=== PATIENT | female | born 2005 | race Caucasian/White ===

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

== ENCOUNTER 2024-02-24 13:24 | Emergency (ER) | payer OTHER, SELFPAY ==
[2024-02-24 13:31] VITALS: BP 112/71; PULSE 99; TEMP 36.7; O2SAT 99; BMI 26.6
--- NOTE | 2024-02-24 13:49 | W.ED.URI ---
HPI - URI/Sore Throat General: Chief Complaint: Upper Respiratory Infection Stated Complaint: throat pain, sore throat, Nausea, light sensitivit Time Seen by Provider: 02/24/24 13:37 History of Present Illness: 18-year-old female presents to the emergency room complaining of severe sore throat and nausea some headache as well. Subjective fever. No vomiting or diarrhea but has been quite nauseous. No diarrhea. Associated symptoms: Deny abdominal pain, chills, chest pain or fever(s) Related Data Previous Rx's Medication Instructions Recorded drospirenone 3 mg-ethinyl 1 tab PO DAILY #84 tabs 11/17/23 estradiol 0.03 mg tablet (Alize (28)) amoxicillin 875 mg-potassium 1 tab PO BID #20 tabs 02/24/24 clavulanate 125 mg tablet prednisone 20 mg tablet 20 mg PO TID #15 tabs 02/24/24 Allergies Allergy/AdvReac Type Severity Reaction Status Date / Time No Known Allergies Allergy Verified 02/24/24 13:35 Review of Systems Const: Denies: fever(s) or chills ENMT: Reports: throat pain, odynophagia and hoarseness Card: Denies: chest pain Resp: Denies: dyspnea GI: Denies: abdominal pain : Denies: dysuria, urinary frequency or urinary urgency Musc: Denies: neck pain or back pain Skin/Breast: Denies: rash PFSH ED PFSH: Medical History 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 Grandfather Diabetes maternal Heart disease maternal Denies family history of Colon cancer Ovarian cancer Hyperlipidemia Breast cancer Hypertension Uterine cancer Thyroid disease Stroke Social History Smoking and tobacco/nicotine status: unknown if used tobacco/nicotine Physical Exam Const: COMMON NORMALS: no acute distress GENERAL APPEARANCE: cooperative and comfortable ORIENTATION/CONSCIOUSNESS: Yes awake, Yes oriented to person, Yes oriented to place and Yes oriented to time HENMT: COMMON NORMALS: normocephalic, atraumatic and hearing grossly normal bilaterally HEAD & SCALP: normocephalic and atraumatic THROAT: posterior oropharynx abnormal edema and erythema Lymph: OTHER: Tender submandibular lymphadenopathy and cervical lymph nodes no abscess. Resp: COMMON NORMALS: normal respiratory effort, No retractions, No use of accessory muscles and clear to auscultation bilaterally AUSCULTATION: clear to auscultation bilaterally Cardio: COMMON NORMALS: regular rate, regular rhythm and No murmurs present (Cardio) RATE: regular rate RHYTHM: regular rhythm GI: COMMON NORMALS: Soft to palpation and No hepatosplenomegaly present AUSCULTATION: Yes normoactive bowel sounds PALPATION: Yes Soft to palpation, No Tenderness to palpation present (GI), No Guarding due to palpation present (GI) and Yes No hepatosplenomegaly present Extremity: COMMON NORMALS: normal to inspection, capillary refill normal, no clubbing, cyanosis or edema, no calf tenderness and no pedal edema Neuro: SENSORIUM/ORIENTATION: Yes oriented to person, Yes oriented to place and Yes oriented to time Skin: COMMON NORMALS: no rashes or lesions noted GENERAL SKIN EXAM: no rashes or lesions noted Course Vital Signs: Vital signs: Vital Signs Temperature 98.1 F 02/24/24 13:31 Pulse Rate 90 02/24/24 18:20 Respiratory Rate 18 02/24/24 18:20 Blood Pressure 100/70 02/24/24 18:20 Pulse Oximetry 97 02/24/24 18:20 Oxygen Delivery Me thod Room Air 02/24/24 16:23 MDM - URI/Sore Throat Medical Decision Making Rapid strep negative CT shows lingular tonsillitis. She does have some submandibular glands as well will treat with Augmentin 875 twice daily for 10 days. Prednisone taper have her follow-up with primary care if not improving Medical Records I reviewed the patient's medical records. Lab Data I reviewed the patient's lab results. 02/24/24 14:22 02/24/24 14:[address] 02/24/24 15:28 IMPRESSION: 1. Lingual tonsillitis. 2. Bilateral submandibular lymphadenopathy. Laboratory Results WBC 15.19 10^3/uL (4.5-13.0) H 02/24/24 14:22 RBC 4.11 10^6/uL (3.85-5.65) 02/24/24 14:22 Hgb 12.70 g/dL (12.4-14.8) 02/24/24 14:22 Hct 38.5 % (36-47) 02/24/24 14:22 MCV 93.7 fl (85-98) 02/24/24 14:22 MCH 30.9 pg (27-33) 02/24/24 14:22 MCHC 33.0 g/dL (30-55) 02/24/24 14:22 RDW 12.7 % (12.1-15.1) 02/24/24 14:22 Plt Count 283 10^3/cmm (157-399) 02/24/24 14:22 MPV 10.0 fL (7.4-10.4) 02/24/24 14:22 Neut % (Auto) 74.1 % 02/24/24 14:22 Lymph % (Auto) 15.8 % 02/24/24 14:22 [place] % (Auto) 8.4 % 02/24/24 14:22 Eos % (Auto) 0.9 % 02/24/24 14:22 Baso % (Auto) 0.3 % 02/24/24 14:22 Neut # (Auto) 11.26 10^3/uL (1.8-8.0) H 02/24/24 14:22 Lymph # (Auto) 2.4 10^3/uL (1.5-6.5) 02/24/24 14:22 [place] # (Auto) 1.3 10^3/uL (0.2-0.9) H 02/24/24 14:22 Eos # (Auto) 0.1 10^3/uL (0.0-0.8) 02/24/24 14:22 Baso # (Auto) 0.0 10^3/uL (0.0-0.1) 02/24/24 14:22 Nucleated RBC % (auto) 0 % 02/24/24 14:22 Nucleated RBCs # 0.0 /100WBC 02/24/24 14:22 Sodium 138 mmol/L (136-145) 02/24/24 14:22 Potassium 3.6 mmol/L (3.5-5.1) 02/24/24 14:22 Chloride 103 mmol/L (98-107) 02/24/24 14:22 Carbon Dioxide 23 mmol/L (22-29) 02/24/24 14:22 Anion Gap 15.6 (5-19) 02/24/24 14:22 BUN 7 mg/dL (6-20) 02/24/24 14:22 Creatinine 0.6 mg/dL (0.5-0.9) 02/24/24 14:22 GFR Calculation 128.8 mL/min (90-130) 02/24/24 14:22 Glucose 95 mg/dL (65-115) 02/24/24 14:22 Calculated Osmolality 284 mOsm/kg (285-295) L 02/24/24 14:22 Calcium 9.4 mg/dL (8.5-10.5) 02/24/24 14:22 Total Bilirubin 0.2 mg/dL (0.15-1.2) 02/24/24 14:22 AST 14 U/L (0-32) 02/24/24 14:22 ALT 16 U/L (0-33) 02/24/24 14:22 Alkaline Phosphatase 109 U/L (35-105) H 02/24/24 14:22 Total Protein 7.1 g/dL (6.6-8.7) 02/24/24 14:22 Albumin 4.3 g/dL (3.5-5.2) 02/24/24 14:22 Globulin 2.8 g/dL (1.3-4.6) 02/24/24 14:22 Monoscreen Negative (Negative) 02/24/24 14:22 Group A Strep Rapid Negative (Negative) 02/24/24 14:37 All radiology interpretation(s) finalized by discharge Discharge Plan Discharge Patient Disposition: Home Clinical Impression: Lingual tonsillitis Condition: Stable Prescriptions: New prednisone 20 mg tablet 20 mg PO TID Qty: 15 0RF Rx Instructions: 1 p.o. 3 times daily x3 days, 1 p.o. twice daily x2 days, 1 p.o. daily x2 days amoxicillin-pot clavulanate 875-125 mg tablet 1 tab PO BID Qty: 20 0RF No Action drospirenone-ethinyl estradiol [Alize (28)] 3-0.03 mg tablet 1 tab PO DAILY Qty: 84 1RF Discharge Orders: Discharge ED (Routine); Ordered 02/24/24 Ordered By: Linwood Quintanilla Referrals: Berenice Hernandez DO [Primary Care Provider] - Discharge Diet: Soft Mechanical Discharge Activity: Increase activity as tolerated Patient Instructions: Opioid Safety, Pain Management Activity Restrictions/Additional Instructions: Thank you for choosing [facility] for your healthcare needs today. It is very important that you follow up as instructed or that you return to the Emergency Department should you have concerns or if your condition changes or worsens in any way. You were seen in the emergency room with complaints of a sore throat. Rapid strep and mono were negative CT showed a lingular tonsillitis on exam he did have significant submandibular lymph nodes that were swollen as well. Recommend started on antibiotic 1 twice a day for 10 days also steroids which will help with the pain follow-up with your primary care doctor if not improving Coding Level of Care Code ED Data Support Analyst for Wes Malik
[2024-02-24 14:29] LABS: Basophils % 0.3 %; Eosinophils # 0.1 10^3/uL (0.0-0.8); Eosinophils % 0.9 %; Hematocrit 38.5 % (36-47); Lymphocytes # 2.4 10^3/uL (1.5-6.5); Lymphocytes % 15.8 %; Mean Corpuscular Hemoglobin 30.9 pg (27-33); Mean Corpuscular Volume 93.7 fl (85-98); Monocytes # 1.3 10^3/uL (0.2-0.9); Monocytes % 8.4 %; Neutrophils # 11.26 10^3/uL (1.8-8.0); Neutrophils % 74.1 %; Nucleated Red Blood Cells % 0 %; Platelet Count 283 10^3/cmm (157-399); Red Blood Count 4.11 10^6/uL (3.85-5.65); Red Cell Distribution Width 12.7 % (12.1-15.1); White Blood Count 15.19 10^3/uL (4.5-13.0)
--- NOTE | 2024-02-24 14:38 | PC.PHAR ---
Pt states takes only Control currently, She did not diamond picker the Mupirocin oint from 12/02/23. Pt states is taking tylenol or ibuprofen along with mucinex cough drops.
[2024-02-24 14:47] LABS: Monoscreen Negative (Negative)
[2024-02-24 14:55] LABS: Rapid Strep A Test Negative (Negative)
[2024-02-24 14:56] LABS: Alanine Aminotransferase 16 U/L (0-33); Albumin Level 4.3 g/dL (3.5-5.2); Alkaline Phosphatase 109 U/L (35-105); Anion Gap 15.6 (5-19); Aspartate Amino Transferase 14 U/L (0-32); Blood Urea Nitrogen 7 mg/dL (6-20); Calcium 9.4 mg/dL (8.5-10.5); Carbon Dioxide 23 mmol/L (22-29); Chloride 103 mmol/L (98-107); Creatinine Clr Calc Pharmacy 150.5372; Globulin 2.8 g/dL (1.3-4.6); Glomerular Filtration Rate 128.8 mL/min (90-130); Glucose 95 mg/dL (65-115); Osmolality Calculated 284 mOsm/kg (285-295); Potassium 3.6 mmol/L (3.5-5.1); Sodium 138 mmol/L (136-145); Total Bilirubin 0.2 mg/dL (0.15-1.2); Total Protein 7.1 g/dL (6.6-8.7)
--- NOTE | 2024-02-24 15:28 | CTR_ITS ---
PROCEDURE INFORMATION: Exam: CT Neck With Contrast Exam date and time: 02/24/2024 4:17 PM Age: 18 years old Clinical indication: Throat pain; Prior surgery; Surgery date: 6+ months; Surgery type: Tonsils; Additional info: Pain trismus TECHNIQUE: Imaging protocol: Computed tomography of the neck with contrast. Radiation optimization: All CT scans at this facility use at least one of these dose optimization techniques: automated exposure control; mA and/or kV adjustment per patient size (includes targeted exams where dose is matched to clinical indication); or iterative reconstruction. Contrast material: OMNI 350; Contrast volume: 80 ml; Contrast route: INTRAVENOUS (IV); COMPARISON: No relevant prior studies available. RADIATION DOSE METRICS: Total DLP (mGy-cm): 248.88 FINDINGS: Salivary glands: Normal. Glands are normal in size. Pharynx: Lingual tonsils are enlarged and heterogeneously enhancing consistent with tonsillitis. Adenoid tonsils and palatine tonsils not visualized. Prevertebral and retropharyngeal spaces: Unremarkable. Larynx: Unremarkable. Epiglottis is normal. Thyroid: Normal. No enlarged or calcified nodules. Trachea: Visualized trachea is unremarkable. Lungs: Unremarkable as visualized. Lymph nodes: Bilateral submandibular lymphadenopathy. Bones/joints: Unremarkable. No acute fracture. Soft tissues: Unremarkable. No significant soft tissue swelling. CT/CT neck w con* [id number] IMPRESSION: 1. Lingual tonsillitis. 2. Bilateral submandibular lymphadenopathy.
[2024-02-24] MEDS: iohexol 350 mg/mL 500 mL Btl (per mL) IV (16:20)
[2024-02-24 16:23] VITALS: BP 98/77; PULSE 99; RESP 17; O2SAT 95
[2024-02-24] MEDS: ketorolac 30 mg/mL INJ IVP (18:07)
[2024-02-24] MEDS: dexamethasone 10 mg/mL INJ IM (18:07)
[2024-02-24 18:20] VITALS: BP 100/70; PULSE 90; RESP 18; O2SAT 97
== END 2024-02-24 18:21 | disposition home or self-care (01) ==
PROVIDERS: Emergency Provider Family Medicine; PCP Pediatrics
DX: J03.90 Acute tonsillitis, unspecified (principal)
CPT/HCPCS: 36415; 70491; 80053; 85025; 86308; 87081; 87880; 96374; 99285; J1100; J1885

== ENCOUNTER 2024-05-23 18:13 | Emergency (ER) | payer OTHER, SELFPAY ==
[2024-05-23 18:17] VITALS: BP 106/60; PULSE 90; RESP 14; TEMP 36.7; O2SAT 97; BMI 26.6
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
[2024-05-23 18:31] VITALS: BP 116/76; PULSE 76; O2SAT 96
[2024-05-23 19:15] VITALS: BP 115/84; PULSE 74; O2SAT 96
== END 2024-05-23 19:16 | disposition home or self-care (01) ==
PROVIDERS: Emergency Provider Emergency Medicine; PCP Pediatrics
DX: S13.4XXA Sprain of ligaments of cervical spine, initial encounter (principal); S09.8XXA Other specified injuries of head, initial encounter; V89.2XXA Person injured in unspecified motor-vehicle accident, traffic, initial encounter
CPT/HCPCS: 70450; 72125; 99284

== ENCOUNTER 2024-12-17 21:34 | Emergency (ER) | payer OTHER, SELFPAY ==
[2024-12-17 21:37] VITALS: BP 119/70; PULSE 90; RESP 16; TEMP 36.8; O2SAT 98; BMI 20.9
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
[2024-12-17 21:56] LABS: Hematocrit 39.5 % (36-47); Hemoglobin 13.70 g/dL (12.4-14.8); Mean Corpuscular HGB Conc 34.7 g/dL (30-55); Mean Corpuscular Hemoglobin 31.3 pg (27-33); Mean Corpuscular Volume 90.2 fl (85-98); Nucleated Red Blood Cells % 0 %; Platelet Count 304 10^3/cmm (157-399); Red Blood Count 4.38 10^6/uL (3.85-5.65); White Blood Count 10.97 10^3/uL (4.5-13.0)
[2024-12-17 22:27] LABS: Alanine Aminotransferase 17 U/L (0-33); Albumin Level 4.8 g/dL (3.5-5.2); Alkaline Phosphatase 112 U/L (35-105); Anion Gap 17.7 (5-19); Aspartate Amino Transferase 19 U/L (0-32); Blood Urea Nitrogen 7 mg/dL (6-20); Calcium 9.8 mg/dL (8.5-10.5); Carbon Dioxide 22 mmol/L (22-29); Chloride 103 mmol/L (98-107); Creatinine Clr Calc Pharmacy 134.7278; Globulin 3.0 g/dL (1.3-4.6); Glucose 97 mg/dL (65-115); Osmolality Calculated 286 mOsm/kg (285-295); Potassium 3.7 mmol/L (3.5-5.1); Sodium 139 mmol/L (136-145); Thyroid Stimulating Hormone 1.19 uIU/mL (0.27-4.20); Total Protein 7.8 g/dL (6.6-8.7)
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
[2024-12-17 22:30] LABS: Salicylate < 0.3 mg/dL (3-10)
[2024-12-17 22:31] LABS: Acetaminophen < 5.0 ug/mL (10-30); Alcohol Level < 10 mg/dL (0-10)
== END 2024-12-17 23:40 | disposition home or self-care (01) ==
PROVIDERS: Emergency Provider Physician Assistant; PCP Pediatrics
DX: F41.9 Anxiety disorder, unspecified (principal)
CPT/HCPCS: 36415; 80053; 80307; 84443; 85025; 99283; J9999

== ENCOUNTER 2025-01-03 19:53 | Emergency (ER) | payer OTHER, SELFPAY ==
[2025-01-03 19:57] VITALS: BP 106/65; PULSE 76; RESP 14; TEMP 36.6; O2SAT 99
[2025-01-03 20:20] VITALS: BP 93/74; PULSE 69; O2SAT 99
[2025-01-03 20:30] VITALS: BP 101/64; PULSE 64; O2SAT 98
[2025-01-03 20:50] LABS: HCG Qualitative Urine. Negative (Negative)
--- NOTE | 2025-01-03 20:51 | W.ED.HA ---
HPI - Headache General: Chief Complaint: Headache Stated Complaint: Migrane for 4 days Time Seen by Provider: 01/03/25 20:10 History of Present Illness: 19-year-old female, history of migraines, presenting with 4-day history of constant headache to the occiput, consistent with prior migraine episodes, positive light sensitivity no vomiting, no hearing or vision loss, no weakness numbness or tingling to the face arms or legs, no difficulty with ambulation, no LOC, no neck stiffness, no fever, no falls or trauma, attempted Tylenol at home without improvement as well as a muscle relaxer that she does not recall the name of likely methocarbamol by med history. Related Data Previous Rx's ?Medication ?Instructions ?Recorded drospirenone 3 mg-ethinyl 1 tab PO DAILY #84 tabs 11/17/23 estradiol 0.03 mg tablet (Alize (28)) amoxicillin 875 mg-potassium 1 tab PO BID #20 tabs 02/24/24 clavulanate 125 mg tablet prednisone 20 mg tablet 20 mg PO TID #15 tabs 02/24/24 methocarbamol 750 mg tablet 750 mg PO Q6H PRN spasms #20 tabs 05/23/24 naproxen 500 mg tablet (Naprosyn) 500 mg PO BID PRN pain #20 tabs 05/23/24 olanzapine 5 mg tablet (Zyprexa) 5 mg PO QPM #30 tabs 12/17/24 Allergies Allergy/AdvReac Type Severity Reaction Status Date / Time No Known Allergies Allergy Verified 01/03/25 20:00 [facility] ED PFSH: Medical History 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 Grandfather Diabetes maternal Heart disease maternal Denies family history of Colon cancer Ovarian cancer Hyperlipidemia Breast cancer Hypertension Uterine cancer Thyroid disease Stroke Social History Smoking and tobacco/nicotine status: unknown if used tobacco/nicotine Physical Exam Narrative: EXAM NARRATIVE: Gen: A&Ox4, no acute distress, nontoxic appearing HEENT: Normocephalic, atraumatic, no scleral icterus, external ears normal, moist mucous membranes Neck: Supple, full range of motion, no observable masses, no meningeal signs, normal range of motion in all directions without discomfort Lungs: No Respiratory distress, Lungs clear to auscultation bilaterally no rales, rhonchi, wheezing CV: Regular rate and rhythm, no murmur, no pitting edema to lower extremities bilaterally Abdomen: Soft, nondistended, nontender to palpation MSK: No joint swelling, FROM all 4 extremities Skin: No rashes, petechiae, lesions. Normal color per patient. Neuro: Alert and oriented, no slurred speech, sensation and strength grossly intact all 4 extremities, no dysmetria, negative Romberg, ambulates with steady gait Psych: Appropriate for situation. Course Reevaluation(s): Reevaluation #1: Patient reassessed, headache resolved, feeling better would like to go home, stable for discharge with return precautions Time: 21:45 Vital Signs: Vital signs: Vital Signs Temperature 97.8 F 01/03/25 19:57 Pulse Rate 72 01/03/25 21:30 Respiratory Rate 14 01/03/25 19:57 Blood Pressure 114/68 01/03/25 21:30 Pulse Oximetry 99 01/03/25 21:30 Oxygen Delivery Me thod Room Air 01/03/25 21:30 MDM - Headache Medical Decision Making 19-year-old generally healthy female with a history of migraines presenting with 4-day history of constant headache, posterior occipital, no neurosymptoms other than mild photophobia, no meningeal signs or neck stiffness to suggest bleed, consistent with prior migraine disorders, trial of headache cocktail, reassess for disposition. At this time of the very low concern for subarachnoid hemorrhage and do not think imaging is indicated unless symptoms are recalcitrant to treatment or patient develops any neurologic symptoms on repeat assessment. Lab Data negative Laboratory Results HCG, Qual Negative (Negative) 01/03/25 20:35 No radiology studies performed this visit Discharge Plan Discharge Patient Disposition: Home Clinical Impression: Migraine Qualifiers: Migraine type: migraine (< 15 days per month) with aura Status migrainosus presence: without status migrainosus Intractability: not intractable Qualified Code(s): G43.109 - Migraine with aura, not intractable, without status migrainosus Condition: Stable Prescriptions: No Action drospirenone-ethinyl estradiol [Alize (28)] 3-0.03 mg tablet 1 tab PO DAILY Qty: 84 1RF olanzapine [Zyprexa] 5 mg tablet 5 mg PO QPM Qty: 30 0RF prednisone 20 mg tablet 20 mg PO TID Qty: 15 0RF Rx Instructions: 1 p.o. 3 times daily x3 days, 1 p.o. twice daily x2 days, 1 p.o. daily x2 days amoxicillin-pot clavulanate 875-125 mg tablet 1 tab PO BID Qty: 20 0RF methocarbamol 750 mg tablet 750 mg PO Q6H PRN (Reason: spasms) Qty: 20 0RF naproxen [Naprosyn] 500 mg tablet 500 mg PO BID PRN (Reason: pain) Qty: 20 0RF Discharge Orders: Discharge ED (Routine); Ordered 01/03/25 Ordered By: Harshil Ulrich Referrals: Berenice Hernandez DO [Primary Care Provider, Pediatrics] Patient Instructions: Patient Portal & [place] Instructions, Migraine Headache (ED) Print Language: Taiwanese Coding Level of Care Code ED Coordinate Measuring Equipment Operator for Wes Malik
[2025-01-03] MEDS: magnesium sulfate premix 1 GM/100 ML PIGGYBACK IV (20:54)
[2025-01-03] MEDS: metoclopramide 5 mg/mL SDV 2 mL 10 MG IVP (20:55)
[2025-01-03 21:00] VITALS: BP 96/54; PULSE 67; O2SAT 100
[2025-01-03 21:30] VITALS: BP 114/68; PULSE 72; O2SAT 99
[2025-01-03 22:05] VITALS: BP 128/72; PULSE 82; RESP 16; TEMP 36.7; O2SAT 100
== END 2025-01-03 22:08 | disposition home or self-care (01) ==
PROVIDERS: Emergency Provider Student in an Organized Health Care Education/Training Program; PCP Pediatrics
DX: G43.109 Migraine with aura, not intractable, without status migrainosus (principal)
CPT/HCPCS: 81025; 96372; 96374; 96375; 99284; J1100; J1885; J2765; J3475; J7030

== ENCOUNTER → 2025-02-27 09:31 | Outpatient (BNVA) | payer OTHER, SELFPAY | PROVIDERS: PCP Pediatrics; Visit Provider Nurse Practitioner Family | DX: R53.83 Other fatigue (principal); Z83.49 Family history of other endocrine, nutritional and metabolic diseases; F43.10 Post-traumatic stress disorder, unspecified | CPT/HCPCS: 80053; 82607; 82652; 84436; 84443; 84480; 85025 ==

== ENCOUNTER 2025-03-21 19:05 | Emergency (ER) | payer SELFPAY ==
--- OUTSIDE RECORDS SUMMARY | 2025-03-21 19:09 | XMS_ITS | Continuity of Care Document ---
Author Name [facility] Organization [facility] Care Team Providers Care Food Concession Manager Name Role Phone [facility] Unavailable Unavailable Problems Combined list of problems from Department of Defense and Veterans Affairs facilities. It does not include entries that were removed or entered in error. Problem Status Onset Date Problem Type Date of Resolution Comments Source common cold Active Condition DoD upper respiratory infection acute Inactive Condition DoD epistaxis Inactive Condition DoD pharyngitis acute Active Condition DoD xerosis cutis Active Condition DoD visit for: student physical Active Condition DoD Need For Vaccination Chickenpox (Active) Active Condition DoD Need For Vaccination Haemophilus Influenzae Type B Active Condition DoD Need For Vaccination MMR Active Condition DoD Need For Vaccination Hepatitis A Active Condition DoD Need For Vaccination Against DTP + Polio Active Condition DoD Allergies, Adverse Reactions, Alerts Combined list of allergies from Department of Defense and Veterans Affairs facilities. It does not include entries that were removed or entered in error. Substance Category Reaction Severity Reaction type Status Date Reported Comments Source No Known Allergies Drug allergy (disorder) active 11/16/2008 ARTEMIO Sheehan Immunizations Combined list of available immunizations from the Department of Defense and Veterans Affairs facilities. Immunization Series Date Given Administered By Site Reaction Lot Number CVX Code Drug Hybrid Tester Status Comments Source measles/mumps /rubella virus vaccine 2008 zzRig Thigh [id number] 03 [employer] complet ed measles/m umps/rube lla virus vaccine 10/18/08 Given Ambulat ory Pharmac y haemophilus b conjugate (PRP-T) vaccine 2008 zzL t Thigh [id number] complet ed haemophil us b conjugate (PRP-T) vaccine 10/18/08 Given Ambulat ory Pharmac y Hep A, ped/adol, 2 dose 2008 zzRig Thigh [id number] 83 [employer] complet ed Hep A, ped/adol, 2 dose 10/18/08 Given Ambulat ory Pharmac y DTaP-poliovir us vaccine, inactivated 2008 zzLef t Thigh [id number] 130 [employer] complet ed DTaP-nancy ovirus vaccine, inactivat ed 10/18/08 Given Ambulat ory Pharmac y varicella virus vaccine 2008 zzLef t Thigh [id number] 21 [employer] complet ed varicella virus vaccine 10/18/08 Given Ambulat ory Pharmac y measles, mumps and rubella virus vaccine 1 2008 Unknown, Provider [id number] 03 Merck (MSD) complet ed measles, mumps and rubella virus vaccine DoD varicella virus vaccine 1 2008 Unknown, Provider [id number] 21 Merck (MSD) complet ed varicella virus vaccine DoD Haemophilus influenzae type b vaccine, PRP-T conjugate 1 2008 Unknown, Provider [id number] [facility] ([facility] complet ed Haemophil us influenza e type b vaccine, PRP-T conjugate DoD hepatitis A vaccine, pediatric/ado lescent dosage, 2 dose schedule 1 2008 Unknown, Provider [id number] 83 [facility] ([facility]) complet ed hepatitis A vaccine, pediatric /adolesce nt dosage, 2 dose schedule DoD Diphtheria, tetanus toxoids and acellular pertu is vaccine, and poliovirus vaccine, inactivated 1 2008 Unknown, Provider [id number] 130 [facility] complet ed Diphtheri a, tetanus toxoids and acellular pertussis vaccine, and polioviru s vaccine, inactivat ed DoD Results Combined list of recent chemistry, hematology and other laboratory results from Department of Defense and Veterans Affairs, ranging from 15 months to all on record, depending upon the facility. Order Name Results Value Reference Range Date Interpretation Specimen Comments Source Chemistry POC U HCG Negative (11/07/21 7:24 AM) 11/07 N [facility] Vital Signs Combined list of inpatient and outpatient Vital Signs from Department of Defense and Veterans Affairs, ranging from 12 months to all on record, depending upon the facility. Vital Sign Value Date Comments Source Systolic Blood Pressure 103 mm[Hg] 11/07/2021 11:35:[address] [place] [address] Diastolic Blood Pressure 64 mm[Hg] 11/07/2021 11:35:[address] [place] [address] Peripheral Pulse Rate 88 bpm 11/07/2021 11:35:[address] [place] [address] Encounters Combined list of: 1) Encounters from Department of [facility] facilities going backup to the last 18 months, not all [place] inpatient encounters are included; 2) Encounters from the Department of [facility] facilities going backup to 280 months. Location Location Details Encounter Type Encounter Number Reason For Visit Attending Provider ADM Date DC Date Status Disposition Source ARTEMIO Sheehan(Peds 1) OUTPATIENT [id number] walkin for shots. RAMILA HYMAN P 10/18 Released w/o Limitations ARTEMIO Sheehan(Peds 1) ARTEMIO Sheehan(Peds 1) OUTPATIENT [id number] well child RAMILA HYMAN P 11/16 Released w/o Limitations ARTEMIO Sheehan(Peds 1) ARTEMIO Sheehan(Family Practice 1, Primary Care Clinic) OUTPATIENT [id number] nose bleeds- 4x today WILLIAMNGUYỄN L 11/26 Released w/o Limitations ARTEMIO Sheehan(Fami ly Practic e 1, Primary Care Clinic) ARTEMIO Sheehan(Peds 1) OUTPATIENT [id number] cough,f ever JAYLEN TURK C 02/15 Released w/o Limitations ARTEMIO Sheehan(Peds 1) ARTEMIO Sheehan([facility] OUTPATIENT [id number] SORE THROAT, TONGUE HAS WHITE SPOTS ON IT, GLANDS VERY SWOLLEN CLAUSINGSIXTO B 07/04 Released w/o Limitations ARTEMIO Sheehan([facility]) Procedures Combined list of: 1) Procedures from Department of Veterans Affairs facilities going back up to thelast 18 months, not all [place] non-surgical procedures are included; 2) All procedures from the Department of [facility] facilities. Procedure Procedure Type Code Date Perfomer Comments Sourc e Tonsillectomy, primary or secondary; younger than age 12 Tonsillectomy, primary or secondary; under age 12 [address] [place] [address] INFECTIOUS AGENT ANTIGEN DETECTION BY IMMUNOASSAY WITH DIRECT OPTICAL (IE, VISUAL) OBSERVATION; STREPTOCOCCUS, GROUP A 0 DoD INFECTIOUS AGENT ANTIGEN DETECTION BY IMMUNOASSAY WITH DIRECT OPTICAL (IE, VISUAL) OBSERVATION; STREPTOCOCCUS, GROUP A 9 DoD MEASLES, MUMPS AND RUBELLA VIRUS VACCINE (MMR), LIVE, FOR SUBCUTANEOUS USE 9 [facility] Rapid Antigen Detection Streptococcus Group A Beta Hemolytic Rapid Antigen Detection Streptococcus Group A Beta Hemolytic 60498 0 YASH SIXTO Beltre [facility] Rapid Antigen Detection Streptococcus Group A Beta Hemolytic Rapid Antigen Detection Streptococcus Group A Beta Hemolytic 26012 9 NGUYỄN THOMAS [facility] Vaccines Viral Varicella (Active) Vaccines Viral Varicella (Active) 21070 9 [facility] Hemophil Influ B Vac PRP-T Conjugate (4 Dose) For IM Use Hemophil Influ B Vac PRP-T Conjugate (4 Dose) For IM Use 17654 9 [facility] Vaccines Viral Measles, Mumps and Rubella, Live Vaccines Viral Measles, Mumps and Rubella, Live 03979 9 [facility] Hep A Vac Ped/Adol Dosage (Intramusc Use) 2 Dose Schedule Hep A Vac Ped/Adol Dosage (Intramusc Use) 2 Dose Schedule 09495 9 [facility] Immunization Administration By Injection, Each Additional Vaccine 9 [facility] Immunization Administration By Injection, One Vaccine Immunization Administration By Injection, One Vaccine 01680 9 [facility] DTaP + IPV Four Through Six Years Of Age DTaP + IPV Four Through Six Years Of Age 59541 9 [facility] Social History Combined list of available smoking, tobacco, and other social history from Department of Defense and Veterans Affairs facilities. Social History Type Response Date Comment Sour e Sexual Orientation Ambula tory Pharmacy Gender identity Ambulator y Pharmacy Sex Representation Female (finding) Unknown Organization This section is an empty soc ial history section. DoD Assessment and Plan Combined list of future care activities from Department of Defense and Veterans Affairs facilities (e.g., assessment and plan notes, appointments, orders, and referrals). Additional future care activities may be listed in the Plan of Care section. Result Assessment and Plan Date Source Assessment and Plan Extracted from:Title : Education Note Author: LI BAILEY Date: 11/07/21 Patient Education Materials Follows: Extracted from:Title: Education Note Author: BELLA MOONEY Date: 10/08/21 Patient Education Materials Follows: 03/22/[address] [place] [address] Functional Status Combined list of recent functional and cognitive assessments recorded at Department of Defense and Veterans Affairs (VA).VA Functional [place] Measurement (FIM) Scale: 1 = Total Assistance (Subject = 0% +), 2 = Maximal Assistance (Subject = 25% +), 3 = Moderate Assistance (Subject = 50% +), 4 = Minimal Assistance (Subject = 75% +), 5 = Supervision, 6 = Modified [place] (Device), 7 = Complete [place] (Timely, Safely). Assessment Date/Time Source Assessment Type Assessment Skill Assessment Score Assessment Details No data available for this section
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
--- OUTSIDE RECORDS SUMMARY | 2025-03-21 19:10 | XMS_ITS | Clinical Summary ---
Author Organization [facility] Address [address] [place] [address] Dr. Dorantesn: [place] [address] Care Team Providers Care Hospice Coordinator Name Role Phone Unavailable Primary Care Provider Unavailabl e Social History Tobacco Use Types Packs/Day Years Used Date Smoking Tobacco: Never Assessed Adolescent Education Answer Date Record ed Getting School Help Needed Not on file 11/01 Comments Unknown Sex and Gender Information Value Date Recorded Sex Assigned at Not on file Legal Sex Female 11:12 PM [employer] WORKER Gender Identity Not on file Sexual Orientation [...]
[2025-03-21 19:31] VITALS: BP 104/66; PULSE 95; RESP 18; TEMP 36.6; O2SAT 99; BMI 19.6
--- NOTE | 2025-03-21 19:45 | ECG_ITS ---
[facility]: 2025-03-21 Pat Name: Ashanti Harrington Department: Room: Gender: Female Substance Abuse Rn: : 2005 Requested By: Zaid Siddiqui Order Number: [id number] Britta MD: NATHALIA GÓEMZ Measurements Intervals [place] Rate: 75 P: 55 AK: 135 QRS: 66 QRSD: 85 T: 37 QT: 356 QTc: 398 Interpretive Statements SINUS RHYTHM INTERPRETATION BASED ON A DEFAULT AGE OF 40 YEARS Compared to ECG 06/18/2021 12:35:49 No significant changes Electronically Signed On 03-25-2025 23:27:53 VICE PRESIDENT AND PORTFOLIO MANAGER by NATHALIA GÓMEZ [email or web address]
[2025-03-21 20:01] VITALS: BP 124/57; PULSE 72; O2SAT 100
[2025-03-21 20:25] VITALS: BP 97/63; PULSE 83; O2SAT 98
--- NOTE | 2025-03-21 20:25 | W.ED.ANXIETY ---
HPI - Anxiety General: Chief Complaint: Anxiety Stated Complaint: Needs meds refilled for anxiety and despression Time Seen by Provider: 03/21/25 19:41 History of Present Illness: This 19-year-old female presents with severe anxiety symptoms following discontinuation of her anxiety medication 3 days ago while in [place]. The patient reports leaving her medication behind and has been without treatment for the past 3 days. She describes feeling manageable for the first few days but today experienced what she characterizes as an 'absolute disaster' with overwhelming anxiety symptoms. The patient has a history of PTSD and experiences panic attacks, which are typically well-controlled with medication. She reports significant chest discomfort associated with her anxiety episodes. The patient states her symptoms are markedly worse today and describes feeling overwhelmed. She acknowledges that her anxiety is much better controlled when she is compliant with her prescribed medications. Related Data Previous Rx's ?Medication ?Instructions ?Recorded olanzapine 5 mg tablet (Zyprexa) 5 mg PO DAILY PRN anxiety #5 tabs 03/21/25 sertraline 25 mg tablet (Zoloft) 25 mg PO DAILY #30 tabs 03/21/25 Allergies Allergy/AdvReac Type Severity Reaction Status Date / Time acetaminophen (From Excedrin Allergy ALGY-Anaphy Verified 03/21/25 19:38 Back and Body) laxis aspirin (From Excedrin Back Allergy ALGY-Anaphy Verified 03/21/25 19:38 and Body) laxis calcium carbonate (From Allergy ALGY-Anaphy Verified 03/21/25 19:38 Excedrin Back and Body) laxis PFSH ED PFSH: Medical History (Updated 03/21/25 @ 19:51 by Zaid Martinez DO) Reactive depression Generalized anxiety disorder Family history of thyroid disease PTSD (post-traumatic stress disorder) 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 Grandfather Diabetes maternal Heart disease maternal Denies family history of Colon cancer Ovarian cancer Hyperlipidemia Breast cancer Hypertension Uterine cancer Thyroid disease Stroke Social History Smoking and tobacco/nicotine status: current every day tobacco/nicotine user Physical Exam Const: COMMON NORMALS: no acute distress GENERAL APPEARANCE: cooperative; not ill appearing and not frail appearing HENMT: COMMON NORMALS: normocephalic, atraumatic and Normal external nose present HEAD & SCALP: normocephalic and atraumatic FACE & SINUS: normal facial exam and face symmetric NOSE: Normal external nose present Eye: COMMON NORMALS: Equal, round and reactive pupils present and EOMs intact bilaterally PUPIL: Yes Equal, round and reactive pupils present Neck/C-Spine: GENERAL: Yes trachea midline Chest: CHEST: Yes Symmetrical chest wall rise Resp: COMMON NORMALS: normal respiratory effort, No retractions, No use of accessory muscles and clear to auscultation bilaterally AUSCULTATION: clear to auscultation bilaterally Cardio: COMMON NORMALS: regular rate and regular rhythm RATE: regular rate RHYTHM: regular rhythm Neuro: GREGG COMA SCALE: document GCS findings Gregg coma scale eye opening: Spontaneous Mcallen coma scale verbal response: Orientated Mcallen coma scale motor response: Obey commands Gregg coma scale total score: 15 SENSORY EXAM: Yes extremities (intact) Psych: COMMON NORMALS: speech normal SPEECH: Yes normal speech Skin: COMMON NORMALS: no rashes or lesions noted GENERAL SKIN EXAM: no rashes or lesions noted Course Vital Signs: Vital signs: Vital Signs Temperature 97.9 F 03/21/25 19:31 Pulse Rate 72 03/21/25 20:01 Respiratory Rate 18 03/21/25 19:31 Blood Pressure 124/57 03/21/25 20:01 Pulse Oximetry 100 03/21/25 20:01 Oxygen Delivery Me thod Room Air 03/21/25 20:01 MDM - Anxiety Medical Decision Making Patient has chronic anxiety with PTSD. She is not actively and a panic episode currently. She is not homicidal. suicidal she does need her medication. Given tomorrow's Liana, she will be able to get her medication filled at the pharmacy either. She is given a dose tonight, and sent with a dose for tomorrow. She notes that she has taken Zyprexa for breakthrough anxiety previously. She is distributed a pill for this, and a prescription for a few to fill at the pharmacy for breakthrough anxiety. She will return for any problems. medically she is stable No radiology studies performed this visit Discharge Plan Discharge Patient Disposition: Home Clinical Impression: PTSD (post-traumatic stress disorder) Condition: Stable Prescriptions: New olanzapine [Zyprexa] 5 mg tablet 5 mg PO DAILY PRN (Reason: anxiety) Qty: 5 0RF Continued sertraline [Zoloft] 25 mg tablet 25 mg PO DAILY Qty: 30 1RF Discharge Orders: Discharge ED (Routine); Ordered 03/21/25 Ordered By: Zaid Martinez Referrals: Emma Pugh FNP [Nurse Practitioner, Family Practice] - 1-3 days Berenice Hernandez DO [Primary Care Provider, Pediatrics] Patient Instructions: Anxiety (ED), Opioid Safety, Pain Management, Patient Portal & Isabela Instructions Activity Restrictions/Additional Instructions: Return for any problem Print Language: Japanese Coding Level of Care Code 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
== END 2025-03-21 20:26 | disposition home or self-care (01) ==
PROVIDERS: Emergency Provider Emergency Medicine; PCP Pediatrics
DX: F43.10 Post-traumatic stress disorder, unspecified (principal); Z72.0 Tobacco use
CPT/HCPCS: 93005; 99283; J9999